=== PATIENT | male | born 1975 | race African-American/Black ===

== ENCOUNTER 2020-11-06 17:13 | Emergency (ER) | payer MEDICAID ==
[~2020-11-06] VITALS: Ht 182.9 cm; Wt 85.1 kg
[2020-11-06] MEDS ORDERED: FAMOTIDINE 20MG/2ML VIAL IV STA (18:08)
[2020-11-06] MEDS ORDERED: SODIUM CHLORIDE 0.9% 1,000 ML IV ONE (18:15)
[2020-11-06 18:42] LABS: BASOPHILS % 0.6 % (0.0-2.0); EOSINOPHILS % 0.1 % (0.0-5.0); HEMATOCRIT. 38.9 % (42.0-52.0); HEMOGLOBIN. 13.4 g/dL (14.0-18.0); LYMPHOCYTES % 22.5 % (20.0-50.0); MEAN CORPUSCULAR HEMOGLOBIN 29.5 pg (28.0-32.0); MEAN CORPUSCULAR VOLUME 85.9 fL (80.0-94.0); MEAN PLATELET VOLUME 8.3 fl (7.4-10.4); MONOCYTES % 12.4 % (2.0-8.0); NEUTROPHILS % 64.4 % (40.0-76.0); PLATELET 387 x1000/uL (130-400); RED BLOOD CELL COUNT 4.53 mill/uL (4.7-6.1)
[2020-11-06 18:48] LABS: CHLORIDE 97 mEq/L (98-107)
[2020-11-06 18:59] LABS: INR 1.1; PROTHROMBIN TIME 11.5 sec (9.6-11.0)
[2020-11-06 19:09] LABS: CLARITY URINE CLEAR (CLEAR); COLOR URINE DARK YELLOW (YELLOW); KETONES URINE TRACE (NEGATIVE); LEUKOCYTE ESTERASE URINE NEGATIVE (NEGATIVE); NITRITE URINE NEGATIVE (NEGATIVE); OCCULT BLOOD URINE NEGATIVE (NEGATIVE); PH URINE 5.5 (4.5-8.0); PROTEIN URINE 2+ (NEGATIVE); SPECIFIC GRAVITY URINE 1.026 (1.005-1.030)
[2020-11-06] MEDS ORDERED: FAMO40TA7 MT (20:02)
[2020-11-06] MEDS ORDERED: DOXY100C42 MT (20:02)
[2020-11-06 20:30] VITALS: BP 119/74
[2020-11-06] MEDS ORDERED: IOHEXOL-300 100 ML BOTTLE ONE (21:34)
[2020-11-06] MEDS ORDERED: IOHEXOL 350 MG/ML 200ML INFUS..BTL IV ONE (21:34)
== END 2020-11-06 20:40 | disposition home or self-care (01) ==
LOC: ER 17:13
DX: K29.00 Acute gastritis without bleeding (principal); J18.9 Pneumonia, unspecified organism; Z20.822 Contact with and (suspected) exposure to COVID-19; F12.10 Cannabis abuse, uncomplicated
CPT/HCPCS: 36415; 71045; 74177; 80053; 81003; 83605; 83690; 84145; 84484; 85025; 85610; 87040; 87086; 93005; 96361; 96374; 99285; C9803; J3490; J7030; Q9967; U0003

== ENCOUNTER 2023-05-15 23:51 | Emergency (ER) | payer MEDICAID ==
[~2023-05-15] VITALS: Ht 180.3 cm; Wt 89.3 kg
[~2023-05-15 23:51] MED LIST: DOXY-456 MT; FAMO40TA7 MT
[2023-05-16 00:42] VITALS: BP 159/101; O2SAT 97
[2023-05-16] MEDS ORDERED: BISM525O28 PO (01:15)
[2023-05-16] MEDS ORDERED: LOPE2CAP MT (01:15)
[2023-05-16 01:30] VITALS: PULSE 90; RESP 15; TEMP 98.5
== END 2023-05-16 01:31 | disposition home or self-care (01) ==
LOC: ER 05-16 00:07
DX: R19.7 Diarrhea, unspecified (principal)
CPT/HCPCS: 99282